=== PATIENT | male | born 1960 | race Caucasian/White ===

== ENCOUNTER → 2020-06-04 15:59 | Outpatient (CLI) | payer OTHER, SELFPAY ==
--- NOTE | 2020-06-04 | DI.RAD.S_ITS ---
PROCEDURE: XR LUMBAR SPINE 2-3V INDICATIONS: dorsalgia TECHNIQUE: 3 views of the lumbar spine were acquired. COMPARISON: None. FINDINGS: Bones: 5 [id number] vertebrae are present. There is mild rightward scoliosis of lumbar spine centered at L2-3 level. Degenerative endplate changes and bilateral facet arthrosis throughout lumbar spine is seen more prominent at L4-5 and L5-S1 levels. No vertebral body compression fractures. No suspicious bony lesions. Soft tissues: Overlying bowel gas pattern is normal. No suspicious soft tissue calcifications. IMPRESSION: Very mild rightward curvature of lumbar spine. No compression fracture or spondylolisthesis. Mild these throughout lumbar spine more prominent at L4-5 and L5-S1 levels. Dictated by: Jm Rivera M.D. on 06/04/2020 at 16:53 Approved by: Jm Rivera M.D. on 06/04/2020 at 16:54
--- NOTE | 2020-06-04 | DI.RAD.S_ITS ---
PROCEDURE: XR HIP W PEL IF DONE RT 2V INDICATIONS: right hip pain TECHNIQUE: AP pelvis with lateral view(s) of the head. Right hip(s). COMPARISON: None. FINDINGS: Bones: Symmetric appearing bilateral hip joint osteoarthritic changes are seen. No evidence of avascular necrosis of femoral No fractures or dislocations. Pelvic ring appears intact. No suspicious bony lesions. Soft tissues: The visualized bowel gas pattern is normal. No suspicious soft tissue calcifications. IMPRESSION: Mild bilateral hip joint osteoarthritis. No hip fracture or dislocation. No evidence of avascular necrosis. Dictated by: Jm Rivera M.D. on 06/04/2020 at 16:54 Approved by: Jm Rivera M.D. on 06/04/2020 at 16:54
== END ==
PROVIDERS: Referring Provider Student in an Organized Health Care Education/Training Program; Visit Provider Student in an Organized Health Care Education/Training Program
DX: M25.551 Pain in right hip (principal); M54.9 Dorsalgia, unspecified; M16.0 Bilateral primary osteoarthritis of hip
CPT/HCPCS: 72100; 73502

== ENCOUNTER → 2020-06-25 15:56 | Outpatient (CLI) | payer OTHER, SELFPAY ==
[2020-06-25 16:30] LABS: COVID19 -Nasal RAPID Negative (Negative)
== END ==
PROVIDERS: PCP Student in an Organized Health Care Education/Training Program; Visit Provider Surgery
DX: Z20.822 Contact with and (suspected) exposure to COVID-19 (principal)
CPT/HCPCS: 87635; C9803

== ENCOUNTER 2020-06-26 14:12 | Day surgery (SDC) | payer OTHER, SELFPAY ==
--- NOTE | 2020-06-26 | PATH_ITS ---
[facility] Accession Number: [id number] . 01 Material submitted: . colon - SIGMOID COLON BIOPSY . 01 Clinical history: . SCREENING COLONOSCOPY . 02 Diagnosis: Sigmoid Colon, Biopsy: Hyperplastic colonic mucosa. Negative for active, chronic and microscopic colitis. Negative for dysplasia and malignancy. V 07/01/2020 1243 Local . 02 Comment: In the setting of a polypoid lesion, the appearance could be compatible with a hyperplastic polyp. . 02 Electronically signed: . Breanna Rangel MD, Pathologist NPI- [id number] . 01 Gross description: . SIGMOID COLON BIOPSY: Received in formalin is 1 fragment(s) of cortez, soft tissue measuring 0.4 x 0.3 x 0.3 cm submitted entirely in 1 cassette(s) /QBJ 06/28/2020 0952 Local . 02 Pathologist provided ICD-10: K63.5 . 02 CPT . 742352 Performed at: 01 [facility] [address], [place], [place] [id number] MD Fidencio Gomez MD Phone: [phone] Performed at: 02 [facility] [address] [place], [place] [id number] MD Breanna Rangel MD Phone: [phone]
[2020-06-26 14:29] VITALS: BP 137/86; PULSE 88; RESP 16; TEMP 36.5; O2SAT 98; BMI 26.1
[2020-06-26] MEDS: LACTATED RINGERS 1,000 ML 200 ML IV (15:07)
--- NOTE | 2020-06-26 15:30 | PM.HP.1 ---
History of Present Illness History of Present Illness Date Patient Seen: 06/26/20 Time Patient Seen: 15:30 Chief complaint: SCREENING COLONOSCOPY Narrative: The patient presents for colorectal sreening. He has had 2 prior colonoscopy is most recently 5 years ago significant for benign polyps.. No personal or family history of colon cancer. On further history denies any recent gastrointestinal symptoms. No nausea, vomiting, abdominal pain, loss of appetite, unexplained weight loss, change in bowel habits, diarrhea, constipation, melena, hematochezia, or bright red blood per rectum. Patient History Medical History (Updated 06/26/20 @ 15:30 by Ta Allen MD) Olivares's esophagus Cough Emphysema lung Hyperlipemia Personal history of colonic polyps Wears glasses Family & Social History Social History: household members spouse Tobacco & Substance use: Smoking Status Former smoker alcohol intake former Substance Use Type marijuana Meds Home Medications and Allergies Home Medications Medication Instructions Recorded Confirmed Type ascorbic acid (vitamin C) [Vitamin 500 mg PO DAILY 06/26/20 06/26/20 History C] atorvastatin 20 mg PO DAILY 06/26/20 06/26/20 History bupropion HCl 450 mg PO DAILY 06/26/20 06/26/20 History calcium 500 mg PO DAILY 06/26/20 06/26/20 History cholecalciferol (vitamin D3) 2,000 unit PO DAILY 06/26/20 06/26/20 History [Vitamin D3] fluticasone propionate 1 spray INTRANASAL BID 06/26/20 06/26/20 History glucosamine sulfate [Glucosamine] 500 mg PO DAILY 06/26/20 06/26/20 History loratadine 10 mg PO PRN 06/26/20 History triamcinolone acetonide 1 applic TOPICAL BID 06/26/20 06/26/20 History Allergies Allergy/AdvReac Type Severity Reaction Status Date / Time No Known Drug Allergies Allergy Verified 06/26/20 14:52 Review of Systems Review of Systems ROS: Yes All systems reviewed with the patient and are negative except as otherwise documented Exam Vital Signs (past 8 hours): - 06/26/20 14:29 Temperature 97.7 F Pulse Rate 88 Respiratory Rate 16 Blood Pressure 137/86 Pulse Oximetry 98 Oxygen Delivery Method Room Air Narrative Exam Narrative: General-no acute distress, adult male HEENT-moist mucous membranes, no scleral icterus Neck-supple, no lymphadenopathy Chest- non labored respirations, clear to auscultation bilaterally Cardiac-regular rate no peripheral edema Abdomen-soft, nontender nondistended Extremities-warm, well perfused Neurological-alert and oriented, no focal deficits Assessment & Plan Assessment & Plan narrative: The patient requires colorectal screening and colonoscopy is recommended for personal history of colonic polyps. Technical details were discussed. Risks, benefits, alternatives explained. Risks including but not limited to myocardial infarction, aspiration, bleeding, pain, missed lesion, incomplete examination, need for further radiographic studies, colonic perforation, and need for major abdominal surgery were discussed. All questions were answered to their satisfaction, and they are in agreement with this plan. Quality MIPS - Admit Advanced Care Plan / Current Medications Measures: #47 ? Advanced Care Plan Clinician documentation instruction: document at admission. [] I confirmed that the patient's Advance Care Plan is present, code status is documented, or surrogate decision maker is listed in the patient?s medical record. [SATISFIES MIPS PERFORMANCE] If Yes, Stop Here [] The patient?s Advance Care plan is not present because: (select) [MIPS PERFORMANCE EXCEPTION/EXCLUSION] [] I confirmed today that the patient does not wish or was not able to name a surrogate decision maker or provide an Advance Care Plan. [] Hospice care is currently being provided or has been provided this calendar year [] I did NOT confirm today the presence of an Advance Care Plan or surrogate decision maker documented within the patient's medical record. [DOES NOT SATISFY MIPS PERFORMANCE] #130 - Documentation of Current Medications in the Medical Record Clinician documentation instruction: use macro the first time you see a patient. [] I have utilized all available immediate resources to obtain, update, or review the patient?s current medications. [SATISFIES MIPS PERFORMANCE] If Yes, Stop Here [] The patient is not eligible for medication reconciliation; the patient is in an emergent medical situation where delaying treatment would jeopardize the patient?s health. [MIPS PERFORMANCE EXCEPTION/EXCLUSION] [] I did NOT confirm, update or review the patient's current list of medications today. [DOES NOT SATISFY MIPS PERFORMANCE] MIPS - CL Central Venous Catheter Placement Measure: #76 ? Prevention of Central Venous Catheter (CVC) ? Related Bloodstream Infection Clinician documentation instruction: use macro every time you place a central line. [] All elements of Maximal Sterile Barrier Technique, including hand hygiene, skin prep, and sterile ultrasound technique (if used) were followed. [SATISFIES MIPS PERFORMANCE] If Yes, Stop Here [] If ?No?, the medical reason all elements were NOT used for medical reason [] (ex. emergent condition). [] Maximal Sterile Barrier Technique was not followed, no reason provided [DOES NOT SATISFY MIPS PERFORMANCE] MIPS - DC Heart Failure Measures: #5 - Heart Failure (HF): Angiotensin-Converting Enzyme (NICOLÁS) Inhibitor or Angiotensin Receptor Maddy (ARB) Therapy for Left Ventricular Systolic Dysfunction (LVSD) and #8 - Heart Failure (HF): Beta-Maddy Therapy for Left Ventricular Systolic Dysfunction (LVSD) Clinician documentation instruction: use macro at every CHF discharge. [] The patient has current or prior documentation of left ventricular ejection fraction (LVEF) less than 40%, or moderate or severely depressed left ventricular systolic function. Answer both: [SATISFIES MIPS PERFORMANCE] [] The patient was prescribed or already taking an Angiotensin-Converting Enzyme (NICOLÁS) Inhibitor, or Angiotensin Receptor Maddy (ARB). [] The patient was prescribed or already taking a beta-maddy. If Yes to Both, Stop Here [] Patient not prescribed/taking: [MIPS PERFORMANCE EXCEPTION/EXCLUSION] [] NICOLÁS or ARB for medical/patient/system reason(s) including [] (ex. allergy, intolerance, contraindication) [] Beta-maddy for medical/patient/system reason(s) including [] (ex. allergy, intolerance, contraindication) [] Patient not prescribed/taking: [DOES NOT SATISFY MIPS PERFORMANCE] [] NICOLÁS or ARB, no reason given [] Beta-maddy, no reason given
[2020-06-26] MEDS: fentaNYL 250 MCG/5 ML INJ IV (15:38)
[2020-06-26] MEDS: MIDAZOLAM 5 MG/5 ML VIAL IV (15:38)
--- NOTE | 2020-06-26 16:03 | PM.OP.ENDO ---
Operative Date/Time/Diagnoses Date of procedure: 06/26/20 Time of procedure: 16:03 Pre-op diagnosis: personal history of colonic polyps Post-op diagnosis: same Procedure & Clinicians Study performed: colonoscopy and polypectomy Same procedure as scheduled: Yes Indications: 59M personal history of colonic polyps Surgeon: Ta Allen Procedure Notes Procedure in detail: Medications: Conscious sedation using 10 mg IV midazolam and 250mcg IV of fentanyl The history and physical was performed/updated and the patient is ASA class is 1. The procedure was discussed in detail with the patient. Potential risks complications including infection, bleeding, missed diagnosis, perforation, need for surgery, and were explained. Their questions were answered and informed consent was obtained. Patient was brought to the procedure room and placed standard monitoring equipment. The patient's vital signs were monitored continuously throughout the entire procedure. Prior to starting time-out was performed. The patient was placed in the left lateral recumbent position. Procedural sedation was administered. Examination began with a thorough inspection of the perianal area there was no evidence of fissures, fistulae, external hemorrhoids or cutaneous malignancy. The colonoscopy scope was then placed into the anal canal and was advanced to the cecum, which was identified by the ileocecal valve, the appendiceal orifice and the confluence of the taenia. The scope was then slowly withdrawn examining colon thoroughly in all directions, irrigating it of any residual stool. Sigmoid diverticulosis For 5 mm sigmoid polyp removed with biopsy forceps The patient tolerated the procedure well. They will be discharged once criteria are met. The prep was of good/excellent quality. The withdrawl time was 7 minutes. The sedation time was 22 minutes. Specimen(s): other (Sigmoid polyp) Complications: none Impression: Colonic polyp, diverticulosis Post-procedure Recommendations: Colonscopy in 5 years Disposition: same day surgery
[2020-06-26 16:06] VITALS: BP 136/85; PULSE 84; RESP 16; TEMP 35.8; O2SAT 95
[2020-06-26 16:11] VITALS: BP 132/81; PULSE 82; RESP 16; O2SAT 95
[2020-06-26 16:16] VITALS: BP 128/77; PULSE 83; RESP 14; O2SAT 95
[2020-06-26 16:21] VITALS: BP 124/75; PULSE 84; RESP 18; O2SAT 97
[2020-06-26 16:30] VITALS: BP 130/88; PULSE 86; RESP 16; TEMP 35.9; O2SAT 99
== END 2020-06-26 16:38 | disposition home or self-care (01) ==
PROVIDERS: PCP Student in an Organized Health Care Education/Training Program; Referring Provider Surgery; Visit Provider Surgery
PROC: 0DJD8ZZ Inspection of Lower Intestinal Tract, Via Natural or Artificial Opening Endoscopic (ICD-10-PCS; CPT 45378; principal; 2020-06-26 15:15)
DX: K57.30 Diverticulosis of large intestine without perforation or abscess without bleeding (principal); Z86.010 Personal history of colon polyps; J43.9 Emphysema, unspecified; E78.5 Hyperlipidemia, unspecified; K63.5 Polyp of colon; Z12.11 Encounter for screening for malignant neoplasm of colon
CPT/HCPCS: 45380; 99152; J2250; J3010

== ENCOUNTER → 2023-11-28 | Outpatient (CLI) | payer OTHER, SELFPAY ==
--- NOTE | 2023-11-28 12:53 | DI.RAD.S_ITS ---
PROCEDURE: XR FINGER LT MIN 2V INDICATIONS: impact injury to distal ring finger TECHNIQUE: AP hand, 2 views of the 4th finger(s) acquired. COMPARISON: None. FINDINGS: Bones: Mildly displaced tuft fracture of the 4th distal phalanx with adjacent soft tissue swelling. Soft tissues: No suspicious soft tissue calcifications. IMPRESSION: 4th digit tuft fracture. Dictated by: Santiago Harkins RRA Interpreted: Josey Perez MD on 11/29/2023 at 18:46 Transcribed by: NURIA on 11/29/2023 at 18:47 Approved by: Josey Perez M.D. on 11/30/2023 at 16:44
== END ==
PROVIDERS: PCP Student in an Organized Health Care Education/Training Program; Referring Provider Physician Assistant; Visit Provider Physician Assistant
DX: S62.635A Displaced fracture of distal phalanx of left ring finger, initial encounter for closed fracture (principal); X58.XXXA Exposure to other specified factors, initial encounter
CPT/HCPCS: 73140

== ENCOUNTER → 2024-05-28 10:56 | Outpatient (CLI) | payer OTHER, SELFPAY ==
--- NOTE | 2024-05-28 10:59 | DI.RAD.S_ITS ---
PROCEDURE: XR ELBOW RT MIN 3V INDICATIONS: Right elbow injury TECHNIQUE: 3 views of the elbow were acquired. COMPARISON: None. FINDINGS: Bones: No fractures or dislocations. No suspicious bony lesions. Soft tissues: No elbow joint effusion. No suspicious soft tissue calcifications. IMPRESSION: No acute bony abnormality or significant joint effusion. Dictated by: Giuseppe Streeter M.D. on 05/28/2024 at 11:50 Approved by: Giuseppe Streeter M.D. on 05/28/2024 at 11:50
== END ==
PROVIDERS: PCP Student in an Organized Health Care Education/Training Program; Referring Provider Nurse Practitioner Family; Visit Provider Nurse Practitioner Family
DX: S59.901A Unspecified injury of right elbow, initial encounter (principal); X58.XXXA Exposure to other specified factors, initial encounter
CPT/HCPCS: 73080

== ENCOUNTER → 2024-08-23 15:51 | Outpatient (CLI) | payer OTHER, SELFPAY ==
--- NOTE | 2024-08-23 15:54 | DI.US.S_ITS ---
PROCEDURE: US ABDOMEN LIMITED INDICATIONS: CAVERNOUS HEMANGIOMIAS TECHNIQUE: Real-time scanning was performed of the abdominal and retroperitoneal organs, with image documentation. COMPARISON: [facility], US, US ABDOMEN, 07/15/2016, 8:57. FINDINGS: Liver: Top-normal in size measuring 17.2 cm. Normal echotexture. There is a rounded hyperechoic lesion in the right lobe medially measuring 1.1 x 1 cm as well as a similar lesion laterally in the right lobe measuring 9 x 7 mm. Hepatopetal flow in the main portal vein. Gallbladder: No gallstones. No wall thickening. No pericholecystic edema. Negative sonographic Brooke's sign. Biliary ducts: Intrahepatic bile ducts are non-dilated. Extrahepatic bile duct caliber measures 7.3 mm. Normal is 6-7 mm or less in diameter, or 10 mm or less post-cholecystectomy. Pancreas: Visualized portions of the pancreas are sonographically normal. Miscellaneous: No free abdominal fluid. IMPRESSION: Two small hyperechoic lesions in the right hepatic lobe, probably due to hemangiomas. These were not seen on the remote prior study. No cholelithiasis or biliary dilatation seen. Dictated by: Librado Sylevster M.D. on 08/23/2024 at 21:52 Approved by: Librado Sylvester M.D. on 08/23/2024 at 21:55
--- NOTE | 2024-08-23 15:54 | DI.CT.S_ITS ---
PROCEDURE: CT LUNG LOW DOSE SCREENING INDICATIONS: LUNG CANCER SCREENING TECHNIQUE: Noncontrast 2.0-2.5 mm thick sections acquired from the pulmonary apices to the posterior costophrenic angles. 7 mm thick axial MIP, and 5 mm coronal and sagittal reformats were then acquired. For radiation dose reduction, the following was used: automated exposure control, adjustment of mA and/or kV according to patient size. COMPARISON: [facility], CT, CT LOW DOSE LUNG CA SCREENING, 10/25/2023, 9:14. FINDINGS: Image quality: Diagnostic. Lower Neck: No enlarged lymph nodes. Thyroid: No thyroid nodules which require sonographic follow up, per consensus guidelines. Axillae: No enlarged lymph nodes. Chest Wall: Unremarkable. Bones: Unremarkable. Lungs and Pleura: No pneumothorax or pleural effusions. Stable appearance of a 5 mm solid nodule in the right lower lobe laterally. Vision a parenchymal density in the left upper lobe anteriorly is also stable. Stable juxtapleural nodule at the left base laterally, with elongated configuration. Several micro nodules in the left lower lobe are also stable. No new focal lesion seen. Heart: Heart size is normal. No pericardial effusion. Thoracic Vessels: The aorta and pulmonary arteries demonstrate normal size. Mediastinum and Radha: No enlarged lymph nodes. Esophagus: No wall thickening. No hiatal hernia. Upper Abdomen: Visualized upper abdomen solid organs and bowel loops appear normal. IMPRESSION: Stable appearance of bilateral benign subcentimeter nodules, no new focal lesion seen. LUNG-RADS 2; continued annual screening, if eligible. Clinically Significant Non-pulmonary Findings: None. Dictated by: Librado Sylvester M.D. on 08/25/2024 at 15:09 Approved by: Librado Sylvester M.D. on 08/25/2024 at 15:16
== END ==
PROVIDERS: PCP Student in an Organized Health Care Education/Training Program; Referring Provider Student in an Organized Health Care Education/Training Program; Visit Provider Nurse Practitioner Family
DX: R91.8 Other nonspecific abnormal finding of lung field (principal); J43.9 Emphysema, unspecified; D18.03 Hemangioma of intra-abdominal structures; Z87.891 Personal history of nicotine dependence
CPT/HCPCS: 71271; 76705